=== PATIENT | male | born 1980 | race Caucasian/White ===

== ENCOUNTER 2017-06-14 17:21 | Emergency (ER) | payer SELFPAY ==
[2017-06-14 17:39] VITALS: BP 125/86; RESP 16; TEMP 99.7
--- NOTE | 2017-06-14 17:57 | EDPHY ---
H & P Time Seen by Provider: 06/14/17 17:56 HPI/ROS: Chief complaint. Cough, fever, flu HPI. 36-year-old male presents emergency department 1 week history of upper respiratory symptoms. He has cough and congestion. Muscle aches. Fever that is subjective. Hot and cold spells. Cough is dry but no shortness of breath. He now has right-sided chest pain for several days from coughing. No recent travel or known exposure to sick contacts. ROS Constitutional. Fever and chills Eyes. no problems with vision ENT. Congestion Cardiovascular. Right-sided chest pain Respiratory. Cough Abdominal. no abdominal pain, no nausea/vomiting, no diarrhea . no problems urinating MS. no calf pain/swelling, no neck/back pain, no joint pain Skin. no rash Lymph. no swollen glands Neuro. no headache, no dizziness, no difficulty walking or with speech Past Medical/Surgical History: Healthy Social History: Single, nonsmoker, no alcohol Smoking Status: Never smoked Physical Exam: General Appearance: Alert well-developed male mild distress vital signs are stable Eyes: Pupils equal and round no pallor or injection. ENT, Mouth: Mucous membranes are moist. Respiratory: Mild inspiratory expiratory rhonchi. No retractions Cardiovascular: Regular rate and rhythm. Gastrointestinal: Abdomen is soft and nontender, no masses, bowel sounds normal. Neurological: Awake and alert, sensory and motor exams grossly normal. Skin: Warm and dry, no rashes. Musculoskeletal: Neck is supple nontender. Extremities symmetrical, full range of motion. Psychiatric: Patient is oriented X 3, there is no agitation. Constitutional: Initial Vital Signs Temperature (C) 37.6 C 06/14/17 17:36 Heart Rate 79 06/14/17 17:36 Respiratory Rate 16 06/14/17 17:36 Blood Pressure 125/86 H 06/14/17 17:36 O2 Sat (%) 97 06/14/17 17:36 O2 Delivery Mode Room Air Allergies/Adverse Reactions: No Known Allergies Allergy (Verified 06/14/17 17:36) Home Medications: Medication Instructions Recorded No Medications 12/12/10 Albuterol Hfa Anes Only [Proair 2 puffs IH QID PRN #1 mdi 06/14/17 Hfa Icu (*)] Benzonatate [Tessalon Pearles (RX)] 100 mg PO Q4-6PRN PRN #14 cap 06/14/17 Motrin (*) 06/14/17 Medical Decision Making - Diagnostics Imaging Results: Imaging Impressions Chest X-Ray 06/14/17 17:46 Impression: Mild central bronchitis, otherwise negative chest.. Chest x-ray consistent with bronchitis. No evidence for pneumothorax or pneumonia ED Course/Re-evaluation: Re-evaluation at 6:10 p.m.. Patient is stable. He and I discussed imaging study results, treatment plan including criteria for return importance of follow -up and further evaluation. He expresses understanding and agreement Differential Diagnosis: Likely this is influenza. I considered pneumonia as well as pneumothorax. No evidence for pneumonia or pneumothorax. X-ray consistent with bronchitis Departure - Departure Disposition: Home, Routine, Self-Care Clinical Impression: Bronchitis Condition: Good Instructions: Acute Bronchitis (ED) Additional Instructions: Continue ureter good care with holding still and increase fluids. Test salon Perles to help with cough. Albuterol inhaler to help with cough and breathing. Return for worsening symptoms. Recheck in 2-3 days if you're not improving Referrals: NONE *PRIMARY CARE P,. [Primary Care Provider] - As per Instructions Brandi Dennison MD [Doctor of Osteopathy] - 2-3 days, if not improved Prescriptions: Albuterol Hfa Anes Only [Proair Hfa Icu (*)] 2 puffs IH QID PRN #1 mdi PRN Reason: Short Of Breath/Dyspnea Benzonatate [Tessalon Pearles (RX)] 100 mg PO Q4-6PRN PRN #14 cap PRN Reason: Cough, Moderate
[2017-06-14] MEDS ORDERED: ALBUTEROL INH PREPACK MDI TAKEHOME ONE ×2 (18:27→18:29)
[2017-06-14 18:34] VITALS: PULSE 68; O2SAT 96
== END 2017-06-14 18:34 | disposition home or self-care (01) ==
DX: J40 Bronchitis, not specified as acute or chronic (principal)